=== PATIENT | female | born 1995 | race Caucasian/White ===

== ENCOUNTER 2019-12-01 18:53 | Emergency (ER) | payer OTHER ==
[~2019-12-01] VITALS: Ht 167.6 cm; Wt 75.3 kg
[~2019-12-01 18:53] MED LIST: DOXYCYCLINE HY100 M1 PO; ULTRACET PO
[2019-12-01] MEDS ORDERED: DICLOFENAC SODI75 MG PO (19:29)
== END 2019-12-01 21:01 | disposition home or self-care (01) ==
LOC: ER 18:53
DX: M94.0 Chondrocostal junction syndrome [Tietze] (principal)